=== PATIENT | male | born 1955 | race Hispanic/Latino ===

== ENCOUNTER 2016-11-19 08:47 | Emergency (ER) | payer MEDICAID, OTHER ==
[2016-11-19 08:48] VITALS: BMI 29.5
[2016-11-19 09:19] VITALS: TEMP 97.9
--- NOTE | 2016-11-19 09:28 | ED PDOC ---
Arrival/HPI - General Chief Complaint: Flu-like Symptoms Time Seen by Provider: 11/19/16 09:10 Historian: Patient - History of Present Illness Narrative History of Present Illness (Text): 11/19/16 09:15 Rafa Adames is a 61 year old male, whose past medical history includes hypertension, who presents to the emergency department complaining generalized body pain associated with fatigue for 4 weeks. Patient notes that symptoms began in his feet which progressed to generalized leg pain to diffuse body pains. Patient reports a tick bite several years ago, but denies any history of rash or fevers. Patient chest pain, shortness of breath, dizziness, or any other complaints at this time. Denies leg swelling or joint swelling. Denies visual symptoms. Denies sore throat or difficulty swallowing. Denies diaphoresis or dyspnea with exertion. Denies heat or cold intolerance. PMD: Dr. Ahn Time/Duration: Other (4 weeks) Symptom Onset: Gradual Symptom Course: Unchanged Activities at Onset: Light Context: Home Past Medical History - Provider Review Nursing Documentation Reviewed: Yes - Past History Past History: No Previous - Infectious Disease Hx of Infectious Diseases: None - Tetanus Immunization Tetanus Immunization: Unknown - Cardiac Hx Cardiac Disorders: Yes Hx Hypertension: Yes - Pulmonary Hx Respiratory Disorders: No - Neurological Hx Neurological Disorder: No - HEENT Hx HEENT Disorder: No - Renal Hx Renal Disorder: No - Endocrine/Metabolic Hx Endocrine Disorders: No - Hematological/Oncological Hx Blood Disorders: No - Integumentary Hx Dermatological Disorder: No - Musculoskeletal/Rheumatological Hx Musculoskeletal Disorders: No Hx Falls: No - Gastrointestinal Hx Gastrointestinal Disorders: No - Genitourinary/Gynecological Hx Genitourinary Disorders: No - Psychiatric Hx Psychophysiologic Disorder: No Hx Depression: No Hx Emotional Abuse: No Hx Physical Abuse: No Hx Substance Use: No - Past Surgical History Past Surgical History: No Previous - Surgical History Hx Musculoskeletal Surgery: Yes - Anesthesia Hx Anesthesia Reactions: No - Suicidal Assessment Feels Threatened In Home Enviroment: No Family/Social History - Physician Review Nursing Documentation Reviewed: Yes Family/Social History: No Known Family HX Smoking Status: Never Smoked Hx Alcohol Use: No Hx Substance Use: No Hx Substance Use Treatment: No Allergies/Home Meds Allergies/Adverse Reactions: Allergies No Known Allergies Allergy (Verified 11/19/16 09:01) Home Medications: Home Meds Medication Instructions Recorded Confirmed amLODIPine [Norvasc] 5 mg PO DAILY 03/29/16 11/19/16 Review of Systems - Review of Systems Constitutional: Fatigue, Other (Generalized body pain). absent: Weight Change, Fevers, Night Sweats Eyes: absent: Vision Changes, Photophobia, Eye Pain ENT: absent: Hearing Changes, Voice Changes, Sinus Congestion Respiratory: absent: SOB Cardiovascular: absent: Chest Pain, Calf Pain, MESSINA Gastrointestinal: absent: Abdominal Pain, Stool Changes, Constipation, Diarrhea , Nausea, Vomiting, Appetite Changes Genitourinary Male: absent: Dysuria, Frequency Musculoskeletal: absent: Arthralgias Skin: absent: Rash, Pruritis Neurological: absent: Headache, Dizziness, Focal Weakness, Disequilibrium Endocrine: absent: Diaphoresis, Polyuria, Polydipsia Hemo/Lymphatic: absent: Easy Bleeding, Easy Bruising Psychiatric: absent: Depression Physical Exam - Physical Exam Narrative Physical Exam (Text): Head: Atraumatic. Normocephalic. Eyes: PERRL. EOMI. Conjunctivae are not pale. Visual acuity and marshall intact. ENT: Mucous membranes are moist and intact. Oropharynx is clear and symmetric. Neck: Supple. Full ROM. No JVD. No lymphadenopathy. Full range of motion. No auscultated bruits. Cardiovascular: Regular rate. Regular rhythm. No murmurs, rubs, or gallops. Distal pulses are 2+ and symmetric. Pulmonary/Chest: No evidence of respiratory distress. Clear to auscultation bilaterally. No wheezing, rales or rhonchi. Abdominal: Soft and non-distended. There is no tenderness. No rebound, guarding, or rigidity. No organomegaly. Good bowel sounds. Back: No CVA tenderness. No midline tenderness or rash. Extremities: No edema. No cyanosis. No clubbing. Full range of motion in all extremities. No calf tenderness. Skin: Skin is warm and dry. No petechiae. No purpura. No bulls eye lesions, no rash. Neurological: Alert, awake, and oriented to person, place, time, and situation. Normal speech. Normal gait. No facial droop. Motor and sensory exam intact. Psychiatric: Good eye contact. Normal interaction, affect, and behavior. Vital Signs Reviewed: Yes Vital Signs Temp Pulse Resp BP Pulse Ox 11/19/16 12:20 69 18 142/86 99 11/19/16 09:01 97.9 F 79 16 134/79 96 Temperature: Afebrile Blood Pressure: Normal Pulse: Regular Respiratory Rate: Normal Appearance: Positive for: Well-Appearing, Non-Toxic, Comfortable Pain Distress: None Mental Status: Positive for: Alert and Oriented X 3 Medical Decision Making ED Course and Treatment: 11/19/16 09:15 Impression: 61 year old complaining of generalized body pain that began in feet for 4 weeks Differential Diagnosis included but are not limited to: Vasculitis vs. Arthritis vs. Lyme Disease vs. Connective Tissue Disorder Plan: -- EKG -- Chest X-ray -- Urinalysis -- Labs -- Reassess and disposition Prior Visits: Notes and results from previous visits were reviewed. Patient last seen in the ED on 03/29/16 for dizziness that day. Patient was discharged home. Progress Notes: Family present at beside. On exam, patient with no chest pain or sob. No fever. CV stable. No abdominal pain. Normal appetite. No discernible rash. 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 No rash. No joint edema or erythema. Labs reviewed with patient and family. 11/19/16 10:00 Chest X-ray: Dictator : Carlitos Cavanaugh MD FINDINGS: LUNGS:No active pulmonary disease. PLEURA:No significant pleural effusion identified, no pneumothorax apparent. CARDIOVASCULAR:Normal. OSSEOUS STRUCTURES:No significant abnormalities. VISUALIZED UPPER ABDOMEN:Normal. OTHER FINDINGS:None. IMPRESSION: No active disease. Patient given Toradol with significant relief of joint pain. NO joint warmth or erythema. He ambulates with no difficulty. Exam not consistent with endocrine emergency at this time. He states prescribed Meloxicam from his PMD Dr. Ahn is not effective. I advised thus discontinuing this, and patient prescribed Naproxen. Risks/side effects reviewed. On re-exam, no distress. LIMITATIONS OF ER studies and labs and imaging reviewed. I stressed to patient ddx include rheumatologic disease, connective tissue disorder, amongst other potential disease processes and stressed need for close follow-up, which I also discussed with his PMD Dr. Mini Ahn. He expresses understanding of limitation and need for close follow-up, as stable, he will be discharged. 11/21/16 17:02 - Lab Interpretations Lab Results: 11/19/16 09:50 11/19/16 09:50 Lab Results 11/19/16 10:17: Urine Color Yellow, Urine Appearance Clear, Urine pH 6.0, Ur Specific [place] 1.010, Urine Protein Negative, Urine Glucose (UA) Negative, Urine Ketones Negative, Urine Blood Negative, Urine Nitrate Negative, Urine Bilirubin Negative, Urine Urobilinogen 0.2, Ur Leukocyte Esterase Negative 11/19/16 09:50: Lyme Disease Screen <0.90 11/19/16 09:50: Salicylates < 1 L, Acetaminophen < 10.0 L 11/19/16 09:50: PT 10.2, INR 0.94, APTT 25.5 11/19/16 09:50: WBC 4.9, RBC 3.90, Hgb 12.8 L, Hct 37.2 L, MCV 95.4, MCH 32.8, MCHC 34.4, RDW 12.9, Plt Count 238, MPV 9.2, Gran % 50.4, Lymph % (Auto) 35.5 H , [place] % (Auto) 9.2 H, Eos % (Auto) 4.5, Baso % (Auto) 0.4, Gran # 2.46, Lymph # 1.7, [place] # 0.5, Eos # 0.2, Baso # 0.02, ESR 5 11/19/16 09:50: Sodium 138, Potassium 4.2, Chloride 108 H, Carbon Dioxide 21, Anion Gap 13, BUN 19, Creatinine 0.9, Est GFR ( Amer) > 60, Est GFR (Non- Af Amer) > 60, Random Glucose 92, Uric Acid 5.8, Calcium 9.3, Magnesium 2.0, Total Bilirubin 0.4, AST 31, ALT 24, Alkaline Phosphatase 67, Lactate Dehydrogenase 416, Total Creatine Kinase 166, Troponin I < 0.01, Total Protein 6.9, Albumin 4.2, Globulin 2.7, Albumin/Globulin Ratio 1.6 11/19/16 09:43: POC Glucose (mg/dL) 89 I have reviewed the lab results: Yes - RAD Interpretation Radiology Orders: 11/19/16 09:25 CHEST PORTABLE [RAD] Stat - Medication Orders Current Medication Orders: Discontinued Medications Ketorolac Tromethamine (Toradol) 30 mg IVP ONCE ONE Stop: 11/19/16 11:10 Last Admin: 11/19/16 11:20 Dose: 30 mg - Scribe Statement The provider has reviewed the documentation as recorded by the Zoila Luna Provider Zoila Attestation: All medical record entries made by the Scribe were at my direction and personally dictated by me. I have reviewed the chart and agree that the record accurately reflects my personal performance of the history, physical exam, medical decision making, and the department course for this patient. I have also personally directed, reviewed, and agree with the discharge instructions and disposition. Disposition/Present on Arrival - Present on Arrival Any Indicators Present on Arrival: No History of DVT/PE: No History of Uncontrolled Diabetes: No Urinary Catheter: No History of Decub. Ulcer: No History Surgical Site Infection Following: None - Disposition Have Diagnosis and Disposition been Completed?: Yes Diagnosis: Arthralgia, Fatigue Disposition: HOME/ ROUTINE Disposition Time: 12:00 Patient Plan: Discharge Condition: GOOD Discharge Instructions (ExitCare): Arthralgia (ED), Fatigue (ED) Additional Instructions: Take pain medication as directed. I am suspicious for possible arthritic or "rheumatologic" disordered. A lyme test has been drawn, results should be available by end of week. For any headaches, any chest pain, any shortness of breath, any rash, any joint swelling or redness, any fevers, any abdominal pain, any nausea or vomiting, any persistent or worsening of symptoms, get rechecked. I have discussed your available results and symptoms with Dr. Enrique Ahn, please follow-up with your doctor. Prescriptions: Naproxen [Naprosyn Tab] 250 mg PO BID PRN #10 tab PRN Reason: Pain, Mild (1-3) Referrals: Enrique Ahn JD, MD [Staff Provider] - Follow up with primary Forms: [employer] (French)
[2016-11-19 09:55] LABS: BASO # 0.02 K/mm3 (0.0-2.0); BASO % 0.4 % (0.0-3.0); EOS # 0.2 (0.0-0.7); EOS % 4.5 % (1.5-5.0); GRAN # 2.46 (1.4-6.5); GRAN % 50.4 % (50.0-68.0); HEMATOCRIT 37.2 % (42.0-52.0); LYMPH # 1.7 (1.2-3.4); LYMPH % 35.5 % (22.0-35.0); MEAN CELL VOLUME 95.4 fl (80.0-105.0); MEAN CORPUSCULAR HEMOGLOBIN 32.8 pg (25.0-35.0); MEAN CORPUSCULAR HGB CONC 34.4 g/dl (31.0-37.0); MEAN PLATELET VOLUME 9.2 fl (7.0-11.0); MONO # 0.5 (0.1-0.6); MONO % 9.2 % (1.0-6.0); RED CELL DISTRIBUTION WIDTH 12.9 % (11.5-14.5); WHITE BLOOD COUNT 4.9 10^3/ul (4.5-11.0)
--- NOTE | 2016-11-19 09:59 | RAD ---
HISTORY: sob COMPARISON: 03/29/2016 FINDINGS: LUNGS: No active pulmonary disease. PLEURA: No significant pleural effusion identified, no pneumothorax apparent. CARDIOVASCULAR: Normal. OSSEOUS STRUCTURES: No significant abnormalities. VISUALIZED UPPER ABDOMEN: Normal. OTHER FINDINGS: None. IMPRESSION: No active disease.
[2016-11-19 10:04] LABS: ALB/GLOB RATIO 1.6 (1.1-1.8); ALKALINE PHOSPHATASE 67 U/L (38-126); ALT/SGPT 24 U/L (7-56); AST/SGOT 31 U/L (17-59); BILIRUBIN,TOTAL 0.4 mg/dL (0.2-1.3); BLOOD UREA NITROGEN 19 mg/dL (7-21); CALCIUM 9.3 mg/dL (8.4-10.5); CARBON DIOXIDE 21 mmol/L (21-33); CHLORIDE 108 mmol/L (98-107); GFR AFRICAN-AMERICAN > 60; GLUCOSE,RANDOM 92 mg/dL (70-110); POTASSIUM 4.2 mmol/L (3.6-5.0); SODIUM 138 mmol/L (132-148); TOTAL PROTEIN 6.9 g/dL (5.8-8.3); URIC ACID 5.8 mg/dL (3.5-8.5)
[2016-11-19 10:07] LABS: INR 0.94 (0.93-1.08); PARTIAL THROMBOPLASTIN TIME 25.5 Seconds (23.7-30.8)
[2016-11-19 10:16] LABS: TROPONIN I < 0.01 ng/mL
[2016-11-19 10:25] LABS: URINE BILIRUBIN NEGATIVE (NEGATIVE); URINE BLOOD NEGATIVE (NEGATIVE); URINE GLUCOSE (UA) NEGATIVE (NEGATIVE); URINE KETONE NEGATIVE (NEGATIVE); URINE LEUKOCYTE ESTERASE NEGATIVE Leu/uL (NEGATIVE); URINE PROTEIN NEGATIVE mg/dL (<30 mg/dL); URINE UROBILINOGEN 0.2 E.U./dL (<1 E.U./dL)
[2016-11-19 10:26] LABS: URINE APPEARANCE CLEAR (CLEAR); URINE COLOR YELLOW (YELLOW)
[2016-11-19 12:20] VITALS: BP 142/86; PULSE 69; RESP 18; O2SAT 99
--- NOTE | 2016-11-19 23:27 | CARD ---
APPROVED REPORT EKG Measurement Heart [id number] <Conclusion> Normal sinus rhythm Normal ECG
[2016-11-20 05:32] LABS: LYME DISEASE SCREEN <0.90 index
== END 2016-11-19 13:44 | disposition home or self-care (01) ==
LOC: ED 08:47
DX: R53.83 Other fatigue (principal); M25.50 Pain in unspecified joint
CPT/HCPCS: 71010; 80053; 80329; 81003; 82550; 82948; 83615; 83735; 84484; 84550; 85025; 85610; 85651; 85730; 86618; 93005; 96374; 99284; J1885